=== PATIENT | male | born 1970 | race Two or more races ===

== ENCOUNTER 2018-06-07 15:39 | Emergency (ER) | payer MEDICAID ==
[~2018-06-07] VITALS: Ht 172.7 cm; Wt 59.0 kg
[2018-06-07 15:44] VITALS: BP 103/69
[2018-06-07] MEDS ORDERED: PHENYTOIN100 MG/4 M ORAL (15:49)
[2018-06-07] MEDS ORDERED: LORATADINE10 M2 PO (15:49)
[2018-06-07] MEDS ORDERED: LORAZEPAM1 MG ORAL (15:49)
[2018-06-07] MEDS ORDERED: TEMAZEPAM30 MG ORAL (15:49)
[2018-06-07] MEDS ORDERED: MONTELUKAST SOD10 MG ORAL (15:49)
[2018-06-07] MEDS ORDERED: BENZTROPINE ME0.5 MG PO (15:49)
[2018-06-07] MEDS ORDERED: FAMOTIDINE20 MG ORAL (15:49)
[2018-06-07] MEDS ORDERED: CEPHALEXIN500 MG ORAL (16:05)
--- NOTE | 2018-06-07 16:05 | Emergency Room Report ---
History of Present Illness General Chief Complaint: Wound Recheck/Suture Removal Present Illness HPI 48-year-old male with history of unknown psychiatric disorder currently nonverbal brought in by caregiver complaining of pain on the left ankle follow- up from an aberration few days ago. According to the caregiver patient keeps scratching his scalp and causing more pain. Denies pus drainage, effective range of motion, tingling and numbness. Caregiver has been cleaning the wound daily basis. Denies S OB, palpitation, chest pain, and all other associated symptoms Allergies: Coded Allergies: No Known Allergies (Unverified , 06/07/18) Patient History Past Medical History: see triage record Past Surgical History: none Pertinent Family History: none Immunizations: UTD - Tdap one year ago Reviewed Nursing Documentation: PMH: Agreed; PSxH: Agreed Nursing Documentation-PMH Hx Seizures: Yes Review of Systems All Other Systems: negative except mentioned in HPI Physical Exam Vital Signs Date Time Temp Pulse Resp B/P (MAP) Pulse Ox O2 Delivery O2 Flow Rate FiO2 06/07/18 15:44 97.9 82 18 103/69 98 Room Air Sp02 EP Interpretation: reviewed, normal General Appearance: normal inspection, well appearing, no apparent distress Head: normocephalic, atraumatic Eyes: bilateral eye normal inspection, bilateral eye PERRL ENT: normal ENT inspection Neck: normal inspection Respiratory: normal inspection, chest non-tender, normal breath sounds, no rhonchi, no wheezing Cardiovascular #1: normal inspection, regular rate, rhythm, no edema, no murmur Cardiovascular #2: 2+ dorsalis pedis (R), 2+ dorsalis pedis (L) Gastrointestinal: normal inspection, non tender, soft Rectal: deferred Musculoskeletal: back normal, other - infected abrasion left ankle Neurologic: normal inspection, alert Psychiatric: normal inspection, judgement/insight normal, memory normal Skin: abrasions - infected, left ankle Lymphatic: normal inspection, no adenopathy Medical Decision Making PA Attestation All my diagnosis and treatment plans were reviewed ad discussed with my supervising physician Dr. Mathew Diagnostic Impression: Primary Impression: Infected abrasion of left ankle ER Course 48-year-old male with history of unknown psychiatric disorder currently nonverbal brought in by caregiver complaining of pain on the left ankle follow- up from an aberration few days ago. According to the caregiver patient keeps scratching his scalp and causing more pain. Denies pus drainage, effective range of motion, tingling and numbness. Caregiver has been cleaning the wound daily basis. Denies S OB, palpitation, chest pain, and all other associated symptoms Ddx considered but are not limited to: infected abrasion, noninfected abrasion, laceration Vital signs: are WNL, pt. is afebrile H&PE are most consistent with infected abrasion left ankle ORDERS: wound clean, keflex ED INTERVENTIONS: wound clean and dress, non adhesive bandage was applied DISCHARGE: At this time pt. is stable for d/c to home. Will provide printed patient care instructions, and any necessary prescriptions. Care plan and follow up instructions have been discussed with the patient prior to discharge. Last Vital Signs Date Time Temp Pulse Resp B/P (MAP) Pulse Ox O2 Delivery O2 Flow Rate FiO2 06/07/18 15:44 97.9 82 18 103/69 98 Room Air Disposition: HOME, SELF-CARE Condition: Stable Scripts Cephalexin* (KEFLEX*) 500 Mg Capsule 500 MG ORAL EVERY 6 HOURS for 7 Days, #28 CAP Prov: Zhang Son 06/07/18 Patient Instructions: Tissue Adhesive Wound Care, [id number], Wound Check Zhang Son Jun 07, 2018 16:05
[2018-06-07 16:20] VITALS: BP 115/60
== END 2018-06-07 16:24 | disposition home or self-care (01) ==
LOC: EMR 16:00
DX: S90.512A Abrasion, left ankle, initial encounter (principal); L08.9 Local infection of the skin and subcutaneous tissue, unspecified; X58.XXXA Exposure to other specified factors, initial encounter; Y93.9 Activity, unspecified; Y92.9 Unspecified place or not applicable; G40.909 Epilepsy, unspecified, not intractable, without status epilepticus
CPT/HCPCS: 99281